=== PATIENT | female | born 1970 | race Caucasian/White ===

== ENCOUNTER 2017-11-04 06:24 | Emergency (ER) | payer OTHER ==
[~2017-11-04] VITALS: Ht 152.4 cm; Wt 60.3 kg
[2017-11-04 06:29] VITALS: Ht 152.4 cm; Wt 60.3 kg
[2017-11-04 07:35] LABS: BASOPHIL % 0.5 % (0-2); PLATELET COUNT 215 x10^3mcL (130-400)
[2017-11-04 07:38] LABS: CARBON DIOXIDE 27.4 mmol/L (21-32); CHLORIDE SERUM 105 mmol/L (98-107); CREATININE SERUM 0.5 mg/dL (0.6-1.0); GFR1 > 60 mL/min; GLUCOSE SERUM 99 mg/dL (74-106); SODIUM SERUM 139 mmol/L (136-145)
[2017-11-04 07:55] LABS: RED CELL DISTRIBUTION WIDTH 15.8 % (11.5-14.5)
[2017-11-04 10:53] LABS: MAGNESIUM 1.9 mg/dL (1.8-2.4); PHOSPHOROUS 3.9 mg/dL (2.5-4.9)
[2017-11-04 10:56] LABS: CHOLESTEROL/HDL RATIO 1.4
[2017-11-04 11:01] LABS: FREE T4 1.34 ng/dL (0.76-1.46); FREE THYROXINE INDEX 3.4 ug/dL (1.4-4.5); T4(THYROXINE) 9.4 ug/dL (4.7-13.3)
[2017-11-04 11:20] LABS: T3 TOTAL 1.04 ng/mL
[2017-11-04 12:22] VITALS: BP 102/53
== END 2017-11-04 12:22 | disposition home or self-care (01) ==
LOC: ED 06:24
PROVIDERS: Emergency Medicine; Family Medicine
DX: J84.10 Pulmonary fibrosis, unspecified (principal); R51 Headache
CPT/HCPCS: 36415; 83880; 84439; Q9967

== ENCOUNTER 2017-11-07 02:06 | Emergency (ER) | payer OTHER ==
[~2017-11-07] VITALS: Ht 152.4 cm; Wt 60.3 kg
[2017-11-07 03:02] VITALS: BP 123/70
== END 2017-11-07 03:02 | disposition home or self-care (01) ==
LOC: ED 02:06
DX: J40 Bronchitis, not specified as acute or chronic (principal); E03.9 Hypothyroidism, unspecified
CPT/HCPCS: Q0092

== ENCOUNTER 2019-03-20 19:21 | Emergency (ER) | payer OTHER ==
[~2019-03-20] VITALS: Ht 154.9 cm; Wt 62.2 kg
[2019-03-20 19:43] VITALS: Ht 154.9 cm; Wt 62.2 kg
[2019-03-20 21:45] VITALS: BP 120/50
== END 2019-03-20 21:45 | disposition home or self-care (01) ==
LOC: ED 19:21
DX: J45.909 Unspecified asthma, uncomplicated (principal); E03.9 Hypothyroidism, unspecified; Z98.890 Other specified postprocedural states